=== PATIENT | female | born 2000 | race African-American/Black ===

== ENCOUNTER 2019-07-03 22:32 | Emergency (ER) | payer OTHER, SELFPAY ==
[2019-07-04] MEDS ORDERED: LIDOCAINE 1% MPF 30 ML VIAL ONE (00:57)
--- NOTE | 2019-07-04 01:58 | ER ---
Nurse's Notes [facility] Name: Coby Andrew Age: 19 yrs Sex: Female : 2000 Arrival Date: 07/03/2019 Time: 22:35 Bed 7 Private MD: Diagnosis: Pilonidal cyst without abscess Presentation: 07/03 23:16 Presenting complaint: Patient states: "I have a boil on the top of my buttocks"; States fc noticing it on Saturday; Complaint of increased pain to area. Transition of care: patient was not received from another setting of care. Onset of symptoms was July 03, 2019. Risk Assessment: Do you want to hurt yourself or someone else? Patient reports no desire to harm self or others. Initial Sepsis Screen: Does the patient meet any 2 criteria? No. Patient's initial sepsis screen is negative. Does the patient have a suspected source of infection? No. Patient's initial sepsis screen is negative. Care prior to arrival: None. 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 - Social history:: Smoking status: Patient denies any tobacco usage or history of. - Ebola Screening: : No symptoms or risks identified at this time. Screenin:19 Abuse screen: Denies threats or abuse. Denies injuries from another. Nutritional fc screening: No deficits noted. Tuberculosis screening: No symptoms or risk factors identified. Fall Risk None identified. Assessment: 23:52 General: Appears in no apparent distress. uncomfortable, Behavior is calm, cooperative, jd3 appropriate for age. Pain: Complains of pain in gluteal cleft Quality of pain is described as aching. Neuro: Level of Consciousness is awake, alert, obeys commands, Oriented to person, place, time, situation. Cardiovascular: Denies chest pain, Capillary refill < 3 seconds Patient's skin is warm and dry. Respiratory: Airway is patent Respiratory effort is even, unlabored, Respiratory pattern is regular, symmetrical, Denies cough, shortness of breath. GI: No signs and/or symptoms were reported involving the gastrointestinal system. Patient currently denies diarrhea, nausea, vomiting. : No signs and/or symptoms were reported regarding the genitourinary system. EENT: No signs and/or symptoms were reported regarding the EENT system. Derm: Skin is intact, Skin is dry, Skin is normal, Skin temperature is warm Reports cyst/boil towards the top of the gluteal cleft. Musculoskeletal: Circulation, motion, and sensation intact. Range of motion: intact in all extremities. 07/04 00:50 Reassessment: Patient appears in no apparent distress at this time. No changes from [facility] previously documented assessment. Patient and/or family updated on plan of care and expected duration. Pain level reassessed. Patient is alert, oriented x 3, equal unlabored respirations, skin warm/dry/pink. awaiting provider to see pt. 01:45 Reassessment: Patient appears in no apparent distress at this time. Patient and/or jd3 family updated on plan of care and expected duration. Pain level reassessed. Patient is alert, oriented x 3, equal unlabored respirations, skin warm/dry/pink. provider at bedside. 02:09 Reassessment: Patient appears in no apparent distress at this time. Patient and/or jd3 family updated on plan of care and expected duration. Pain level reassessed. Patient is alert, oriented x 3, equal unlabored respirations, skin warm/dry/pink. pt reported understanding of discharge instructions, even and steady gait upon discharge. Vital Signs: 07/03 23:18 BP 128 / 96; Pulse 99; Resp 18; Temp 98.8; Pulse Ox 100% on R/A; Weight 69.4 kg; Height 5 ft. 8 in. (172.72 cm); 07/04 02:10 Pulse 95; Resp 16 S; Pulse Ox 100% on R/A; d3 07/03 23:18 Body Mass Index 23.26 (69.40 kg, 172.72 cm) ED Course: 07/03 22:35 Patient arrived in ED. cl3 23:17 Triage completed. 23:18 Arm band placed on. 23:46 Muaro Wiseman PA is PHCP. [facility] 23:46 Thomas Arroyo MD is Attending Physician. [facility] 23:52 Stephen Rivas, RN is Primary Nurse. [facility] 23:53 Patient has correct armband on for positive identification. Placed in gown. Bed in low jd3 position. Call light in reach. Side rails up X 1. Adult w/ patient. 07/04 01:58 Heron Deutsch MD is Referral Physician. [facility] 02:09 No provider procedures requiring assistance completed. Patient did not have IV access jd3 during this emergency room visit. Administered Medications: 02:08 Not Given (Physician Discretion): Lidocaine (1 %) 1 vials 20 ml Infiltration once; to jd3 bedside Outcome: 01:57 Discharge ordered by MD. [facility] 02:09 Discharged to home ambulatory, with family. [facility] 02:09 Condition: stable 02:09 Discharge instructions given to patient, Instructed on discharge instructions, follow up and referral plans. medication usage, Demonstrated understanding of instructions, follow-up care, medications, Prescriptions given X 2. 02:11 Patient left the ED. [facility] Signatures: Mauro Wiseman PA PA jmm Chretien, Felicia, RN RN Stephen Linares, RN RN Sergei Nagy cl3
--- NOTE | 2019-07-04 01:59 | EDPHYS ---
Physician Documentation [facility] Name: Coby Andrew Age: 19 yrs Sex: Female : 2000 Arrival Date: 07/03/2019 Time: 22:35 Bed 7 Private MD: ED Physician Thomas Arroyo HPI: 07/04 01:52 This 19 yrs old Black Female presents to ER via Ambulatory with complaints of Boil. jmm 01:52 the patient presents with a swollen area of the buttocks. Onset: The symptoms/episode jmm began/occurred gradually, 4 day(s) ago. Possible cause(s): unknown. Associated signs and symptoms: Pertinent positives: swelling, Pertinent negatives: drainage, erythema, fever. Modifying factors: the symptoms are alleviated by nothing, the symptoms are aggravated by movement, walking, pressure, sitting. This is a 19 year old female with no chronic medical conditions that presents to the ED with complaints of pain to her buttocks for the past 4 days. Denies injury. Denies fever. . 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 - Social history:: Smoking status: Patient denies any tobacco usage or history of. - Ebola Screening: : No symptoms or risks identified at this time. ROS: 07/04 01:52 Constitutional: Negative for fever, chills, and weight loss, Cardiovascular: Negative jmm for chest pain, palpitations, and edema, Respiratory: Negative for shortness of breath, cough, wheezing, and pleuritic chest pain, Abdomen/GI: Negative for abdominal pain, nausea, vomiting, diarrhea, and constipation. Skin: Positive for swelling. All other systems are negative. Exam: 01:52 Constitutional: This is a well developed, well nourished patient who is awake, alert, jmm and in no acute distress. Head/Face: atraumatic. Eyes: EOMI, no conjunctival erythema appreciated ENT: Moist Mucus Membranes Neck: Trachea midline, Supple Chest/axilla: Normal chest wall appearance and motion. Cardiovascular: Regular rate and rhythm. No edema appreciated Respiratory: Normal respirations, no respiratory distress appreciated Abdomen/GI: Non distended, soft Back: Normal ROM 01:52 Skin: right superior gluteal pain, TTP, mild swelling appreciated, no induration or erythema appreciated. . 01:52 Neuro: Orientation: is normal, Mentation: is normal, Memory: is normal. 01:52 Psych: Behavior/mood is pleasant, cooperative. Vital Signs: 07/03 23:18 BP 128 / 96; Pulse 99; Resp 18; Temp 98.8; Pulse Ox 100% on R/A; Weight 69.4 kg; Height fc 5 ft. 8 in. (172.72 cm); 07/04 02:10 Pulse 95; Resp 16 S; Pulse Ox 100% on R/A; jd3 07/03 23:18 Body Mass Index 23.26 (69.40 kg, 172.72 cm) fc MDM: 00:50 Patient medically screened. [facility] 01:55 Data reviewed: vital signs, nurses notes. Counseling: I had a detailed discussion with luis the patient and/or guardian regarding: the historical points, exam findings, and any diagnostic results supporting the discharge/admit diagnosis, the need for outpatient follow up, to return to the emergency department if symptoms worsen or persist or if there are any questions or concerns that arise at home. ED course: PE findings do not appear consistent with a drainable abscess. Patient advised to do sitz baths and given abx with strict return precautions. Patient understood and agrees with the plan of care. . 07/04 01:06 Order name: I\T\D Setup; Complete Time: 01:06 jd3 07/04 01:06 Order name: Sterile Gloves; Complete Time: : jd3 Administered Medications: 02:08 Not Given (Physician Discretion): Lidocaine (1 %) 1 vials 20 ml Infiltration once; to jd3 bedside Disposition: 06:33 Co-signature as Attending Physician, Thomas Arroyo MD. pkl Disposition: 07/04/19 01:57 Discharged to Home. Impression: Pilonidal cyst without abscess. - Condition is Stable. - Discharge Instructions: Pilonidal Cyst, How to Take a Sitz Bath. - Prescriptions for Bactrim DS 800- 160 mg Oral Tablet - take 1 tablet by ORAL route every 12 hours for 10 days; 20 tablet. Ultracet 37.5- 325 mg Oral Tablet - take 1 tablet by ORAL route every 6 hours - for up to 5 days; do not exceed 8 tablets per day.; 12 tablet. - Medication Reconciliation Form, Thank You Letter, Antibiotic Education, Prescription Opioid Use, Work release form form. - Follow up: Private Physician; When: 2 - 3 days; Reason: Recheck today's complaints, Continuance of care, Re-evaluation by your physician. Follow up: Heron Deutsch MD; When: 2 - 3 days; Reason: Recheck today's complaints, Continuance of care, Re-evaluation by your physician. Signatures: Thomas Arroyo MD MD pkl Mickail, Joel, PA PA jmm Chretien, Felicia RN RN Stephen Linares RN RN jd3 Corrections: (The following items were deleted from the chart) 01:58 01:57 07/04/2019 01:57 Discharged to Home. Impression: Pilonidal cyst without abscess. jmm Condition is Stable. Forms are Medication Reconciliation Form, Thank You Letter, Antibiotic Education, Prescription Opioid Use. Follow up: Private Physician; When: 2 - 3 days; Reason: Recheck today's complaints, Continuance of care, Re-evaluation by your physician. jmm 02:08 01:06 Wound Care ordered. jd3 jd3 02:11 01:58 07/04/2019 01:57 Discharged to Home. Impression: Pilonidal cyst without abscess. jd3 Condition is Stable. Discharge Instructions: Pilonidal Cyst, How to Take a Sitz Bath. Prescriptions for Bactrim DS 800-160 mg Oral Tablet - take 1 tablet by ORAL route every 12 hours for 10 days; 20 tablet. and Forms are Medication Reconciliation Form, Thank You Letter, Antibiotic Education, Prescription Opioid Use. Follow up: Private Physician; When: 2 - 3 days; Reason: Recheck today's complaints, Continuance of care, Re-evaluation by your physician. Follow up: Heron Deutsch; When: 2 - 3 days; Reason: Recheck today's complaints, Continuance of care, Re-evaluation by your physician. [facility]
[2019-07-04 02:16] VITALS: BP 128/96; TEMP 98.8; O2SAT 100
== END 2019-07-04 02:11 | disposition home or self-care (01) ==
LOC: ER 22:32
DX: L05.91 Pilonidal cyst without abscess (principal)
CPT/HCPCS: 99282